=== PATIENT | male | born 1985 | race Caucasian/White ===

== ENCOUNTER 2017-04-22 16:02 | Emergency (ER) | payer MEDICAID | END 2017-04-22 18:24 | disposition home or self-care (01) | LOC: E/R 16:02 | DX: H10.13 Acute atopic conjunctivitis, bilateral (principal); J30.9 Allergic rhinitis, unspecified | CPT/HCPCS: 99283; Z7502 ==

== ENCOUNTER 2017-06-23 17:34 | Emergency (ER) | payer MEDICAID, OTHER ==
[2017-06-23] MEDS: TRIMETHOPRIM/SULFAMETHOX (DS) TAB PO (18:21)
[2017-06-23] MEDS: CEPHALEXIN 500 MG CAP PO (18:22)
== END 2017-06-23 19:24 | disposition home or self-care (01) ==
LOC: FTE 17:34
DX: L03.116 Cellulitis of left lower limb (principal)
CPT/HCPCS: 82962; 99284

== ENCOUNTER 2017-06-28 06:30 | Emergency (ER) | payer MEDICAID | END 2017-06-28 07:36 | disposition home or self-care (01) | LOC: FTE 06:30 | DX: Z48.01 Encounter for change or removal of surgical wound dressing (principal) | CPT/HCPCS: 99281; Z7502 ==